=== PATIENT | female | born 1970 | race Caucasian/White ===

== ENCOUNTER 2017-04-26 07:18 | Emergency (ER) | payer OTHER ==
[~2017-04-26] VITALS: Ht 152.4 cm; Wt 120.0 kg
[~2017-04-26 07:18] MED LIST: CLON1TAB PO; VIST50CA PO
[2017-04-26 07:19] VITALS: BP 129/90; PULSE 92; RESP 20; TEMP 97.7; O2SAT 97
[2017-04-26 08:25] LABS: AUTOMATED NEUTROPHIL # 7.2 TH/MM3 (1.8-7.7); BASOPHIL # 0.1 TH/MM3 (0-0.2); BASOPHIL % 0.6 % (0.0-2.0); EOSINOPHIL # 0.2 TH/MM3 (0-0.4); EOSINOPHIL % 1.8 % (0.0-4.0); HEMATOCRIT 36.3 % (35.0-46.0); HEMO FLAGS DIFF FINAL; LYMPHOCYTE # 1.8 TH/MM3 (1.0-4.8); MEAN CELL VOLUME 79.1 FL (80.0-100.0); MEAN CORPUSCULAR HEMOGLOBIN 25.5 PG (27.0-34.0); MEAN CORPUSCULAR HGB CONC 32.2 % (32.0-36.0); MONO % 5.6 % (0.0-8.0); PLATELET COUNT 340 TH/MM3 (150-450); RED BLOOD COUNT 4.59 MIL/MM3 (4.00-5.30); RED CELL DISTRIBUTION WIDTH 15.8 % (11.6-17.2); WHITE BLOOD COUNT 9.8 TH/MM3 (4.0-11.0)
[2017-04-26 08:43] LABS: ANION GAP 6 MEQ/L (5-15); AST (GOT) 10 U/L (15-37); BICARBONATE 25.8 MEQ/L (21.0-32.0); BLOOD UREA NITROGEN 6 MG/DL (7-18); CHLORIDE 102 MEQ/L (98-107); GLOMERULAR FILTRATION RATE 102 ML/MIN (>89); POTASSIUM 3.8 MEQ/L (3.5-5.1); SODIUM (NA) 134 MEQ/L (136-145)
[2017-04-26 08:49] LABS: ALKALINE PHOSPHATASE 82 U/L (45-117); ALT (GPT) 13 U/L (10-53); TOTAL BILIRUBIN ADULT 1.1 MG/DL (0.2-1.0)
--- NOTE | 2017-04-26 09:16 | PD ---
HPI Chief Complaint: Dizziness Time Seen by Provider: 09:13 Travel History International Travel<30 days: No Contact w/Intl Traveler<30days: No Traveled to known affect area: No History of Present Illness HPI c/o onset of room spinning today, 3hrs ago, with left ear fullness/pain, and a buzzing sound as well....denies fever/nelson/photophobia/n/v PFSH Past Medical History Depression: Yes ?: Not : 2 Para: 2 Past Surgical History Section: Yes (X 2) Social History Alcohol Use: No Tobacco Use: No Substance Use: No Allergies-Medications (Allergen,Severity, Reaction): Coded Allergies: penicillin G (Unverified Allergy, Unknown, 04/26/17) Reported Meds & Prescriptions Reported Meds & Active Scripts Active Meclizine (Meclizine HCl) 25 Mg Tab 25 Mg PO TID PRN Ciprofloxacin (Ciprofloxacin HCl) 500 Mg Tab 500 Mg PO BID Reported Vistaril (Hydroxyzine Pamoate) 50 Mg Cap 100 Mg PO QID PRN Review of Systems Except as stated in HPI: all other systems reviewed are Neg HENT: Positive: Vertigo Physical Exam Narrative GENERAL: SKIN: Warm and dry. HEAD: Atraumatic. Normocephalic. EYES: Pupils equal and round. No scleral icterus. No injection or drainage. ENT: No nasal bleeding or discharge. Mucous membranes pink and moist. LEFT TM ERYTHEMATOUS/DULL/BULGING/ WITH FLUID PRESENT C/W EFFUSION NECK: Trachea midline. No JVD. CARDIOVASCULAR: Regular rate and rhythm. RESPIRATORY: No accessory muscle use. Clear to auscultation. Breath sounds equal bilaterally. GASTROINTESTINAL: Abdomen soft, non-tender, nondistended. MUSCULOSKELETAL: Extremities without clubbing, cyanosis, or edema. No obvious deformities. NEUROLOGICAL: Awake and alert. No obvious cranial nerve deficits. Motor grossly within normal limits. Five out of 5 muscle strength in the arms and legs. Normal speech. PSYCHIATRIC: Appropriate mood and affect; insight and judgment normal. Data Data Last Documented VS Vital Signs Date Time Temp Pulse Resp B/P (MAP) Pulse Ox O2 Delivery O2 Flow Rate FiO2 04/26/17 11:47 04/26/17 09:21 82 18 100 Room Air 04/26/17 07:19 97.7 Orders Orders Electrocardiogram (04/26/17 08:05) Complete Blood Count With Diff (04/26/17 08:05) Comprehensive Metabolic Panel (04/26/17 08:05) Iv Access Insert/Monitor (04/26/17 08:05) Ct Brain W/O Iv Contrast(Rout) (04/26/17 ) Labs Laboratory Tests Test 04/26/17 08:05 White Blood Count 9.8 TH/MM3 Red Blood Count 4.59 MIL/MM3 Hemoglobin 11.7 GM/DL Hematocrit 36.3 % Mean Corpuscular Volume 79.1 FL Mean Corpuscular Hemoglobin 25.5 PG Mean Corpuscular Hemoglobin Concent 32.2 % Red Cell Distribution Width 15.8 % Platelet Count 340 TH/MM3 Mean Platelet Volume 8.2 FL Neutrophils (%) (Auto) 74.0 % Lymphocytes (%) (Auto) 18.0 % Monocytes (%) (Auto) 5.6 % Eosinophils (%) (Auto) 1.8 % Basophils (%) (Auto) 0.6 % Neutrophils # (Auto) 7.2 TH/MM3 Lymphocytes # (Auto) 1.8 TH/MM3 Monocytes # (Auto) 0.5 TH/MM3 Eosinophils # (Auto) 0.2 TH/MM3 Basophils # (Auto) 0.1 TH/MM3 CBC Comment DIFF FINAL Differential Comment Blood Urea Nitrogen 6 MG/DL Creatinine 0.63 MG/DL Random Glucose 108 MG/DL Total Protein 8.4 GM/DL Albumin 3.2 GM/DL Calcium Level 8.8 MG/DL Alkaline Phosphatase 82 U/L Aspartate Amino Transf (AST/SGOT) 10 U/L Alanine Aminotransferase (ALT/SGPT) 13 U/L Total Bilirubin 1.1 MG/DL Sodium Level 134 MEQ/L Potassium Level 3.8 MEQ/L Chloride Level 102 MEQ/L Carbon Dioxide Level 25.8 MEQ/L Anion Gap 6 MEQ/L Estimat Glomerular Filtration Rate 102 ML/MIN [facility] Medical Decision Making Medical Screen Exam Complete: Yes Emergency Medical Condition: Yes Medical Record Reviewed: Yes Differential Diagnosis ich v sinusitis v vertigo Narrative Course CT DID NOT SHOW E/O ICH, NOR ANY MAJOR SINUS INFECTION Diagnosis Primary Impression: vertigo Additional Impression: Left otitis media with effusion Scripts Meclizine (Meclizine) 25 Mg Tab 25 MG PO TID Y for VERTIGO, #21 TAB 0 Refills Prov: Willi Rodrigues MD 04/26/17 Ciprofloxacin (Ciprofloxacin) 500 Mg Tab 500 MG PO BID for Infection, #14 TAB 0 Refills Prov: Willi Rodrigues MD 04/26/17 Disposition: 01 DISCHARGE HOME Condition: Stable Willi Rodrigues MD Apr 26, 2017 09:16
[2017-04-26] MEDS ORDERED: VIST50CA PO (09:20)
[2017-04-26 09:21] VITALS: BP 131/87; PULSE 82; RESP 18; O2SAT 100
--- NOTE | 2017-04-26 10:06 | RADRPT ---
EXAM DATE/TIME: 04/26/2017 10:00 [facility] COMPARISON: No previous studies available for comparison. INDICATIONS : Dizziness. RADIATION DOSE: 35.39 CTDIvol (mGy) MEDICAL HISTORY : None SURGICAL HISTORY : section. ENCOUNTER: Initial ACUITY: 1 day PAIN SCALE: 0/10 LOCATION: cranial TECHNIQUE: Multiple contiguous axial images were obtained of the head. Using automated exposure control and adj ustment of the mA and/or kV according to patient size, radiation dose was kept as low as reasonably a chievable to obtain optimal diagnostic quality images. DICOM format image data is available electro nically for review and comparison. FINDINGS: CEREBRUM: The ventricles are normal for age. No evidence of midline shift, mass lesion, hemorrhage or acute in farction. No extra-axial fluid collections are seen. POSTERIOR FOSSA: The cerebellum and brainstem are intact. The 4th ventricle is midline. The cerebellopontine angle i s unremarkable. EXTRACRANIAL: The visualized portion of the orbits is intact. SKULL: The calvaria is intact. No evidence of skull fracture. CONCLUSION: Negative exam Julian Jones MD on April 26, 2017 at 10:03 Board Certified Radiologist. This report was verified electronically.
[2017-04-26] MEDS ORDERED: CIPR500T2 PO (10:13)
[2017-04-26] MEDS ORDERED: MECL-62 PO (10:13)
--- NOTE | 2017-04-26 12:08 | EKG ---
Date Performed: 04/26/2017 Time Performed: 08:26:14 PTAGE: 46 years EKG: Sinus rhythm WITH SHORT CT INTERVAL BORDERLINE ECG PREVIOUS TRACING : 06/20/2016 22.27 No significant change from previous tracing noted. DOCTOR: Brent Ho Interpretating Date/Time 04/26/2017 12:06:27
== END 2017-04-26 11:45 | disposition home or self-care (01) ==
LOC: NEPD 07:18
DX: H65.92 Unspecified nonsuppurative otitis media, left ear (principal)
CPT/HCPCS: 70450; 80053; 85025; 93005; 99285

== ENCOUNTER 2017-08-12 08:36 | Emergency (ER) | payer OTHER ==
[~2017-08-12] VITALS: Ht 152.4 cm; Wt 120.0 kg
[~2017-08-12 08:36] MED LIST changes: +CIPR500T2 PO; -CLON1TAB PO; +MECL-62 PO
[2017-08-12 08:39] VITALS: BP 162/99; PULSE 95; RESP 16; TEMP 98; O2SAT 100
[2017-08-12] MEDS ORDERED: SODIUM CHLOR 0.9% 1000 ML INJ 1,000 ML IV ONE (09:01)
--- NOTE | 2017-08-12 09:05 | PD ---
HPI Chief Complaint: Headache Time Seen by Provider: 09:01 Travel History International Travel<30 days: No Contact w/Intl Traveler<30days: No Traveled to known affect area: No History of Present Illness HPI 47-year-old female patient with history of migraine headaches, anxiety, presents to the ER today for 2 days history of headaches that started from the back of her head, rated at an 8 out of 10 currently, worsening and last few days. She has been nauseous but denies any fevers, vomiting, stiff neck, diarrhea, or other symptoms. She states that she has history of migraine headaches and initially thought that it could be related to her anxiety but took anxiety medications without significant relief. Modifying Factors: None Associated Signs & Symptoms: Headaches Risk Factors: History of migraine headaches PFSH Past Medical History Anxiety: Yes Depression: Yes Diminished Hearing: No Psychiatric: Yes ?: Not Menopausal: Yes : 2 Para: 2 Past Surgical History Section: Yes (X 2) Gynecologic Surgery: Yes (C-SEC X 2) Social History Alcohol Use: No Tobacco Use: No Substance Use: No Allergies-Medications (Allergen,Severity, Reaction): Coded Allergies: penicillin G (Unverified Allergy, Unknown, 08/12/17) Reported Meds & Prescriptions Reported Meds & Active Scripts Active Reported Vistaril (Hydroxyzine Pamoate) 50 Mg Cap 100 Mg PO QID PRN Review of Systems Except as stated in HPI: all other systems reviewed are Neg Physical Exam Narrative GENERAL: Well-developed middle age female patient currently mild distress. Awake and oriented 3. Sitting in a lighted room, no photophobia. SKIN: Focused skin assessment warm/dry. HEAD: Atraumatic. Normocephalic. EYES: Pupils equal and round. No scleral icterus. No injection or drainage. ENT: No nasal bleeding or discharge. Mucous membranes pink and moist. NECK: Trachea midline. No JVD. Neck is supple. CARDIOVASCULAR: Regular rate and rhythm. No murmur appreciated. RESPIRATORY: No accessory muscle use. Clear to auscultation. Breath sounds equal bilaterally. GASTROINTESTINAL: Abdomen soft, non-tender, nondistended. Hepatic and splenic margins not palpable. MUSCULOSKELETAL: No obvious deformities. No clubbing. No cyanosis. No edema. NEUROLOGICAL: Awake and alert. No obvious cranial nerve deficits. Motor grossly within normal limits. Normal speech. PSYCHIATRIC: Appropriate mood and affect; insight and judgment normal. Data Data Last Documented VS Vital Signs Date Time Temp Pulse Resp B/P (MAP) Pulse Ox O2 Delivery O2 Flow Rate FiO2 08/12/17 08:39 98.0 95 16 162/99 (120) 100 Room Air Orders Orders Complete Blood Count With Diff (08/12/17 09:01) Basic Metabolic Panel (Bmp) (08/12/17 09:01) Ct Brain W/O Iv Contrast(Rout) (08/12/17 09:) Ecg Monitoring (08/12/17 09:) Iv Access Insert/Monitor (08/12/17:) Oximetry (08/12/17 09:) Sodium Chloride 0.9% Flush (Ns Flush) (08/12/17:15) Diphenhydramine Inj (Benadryl Inj) (08/12/17:15) Metoclopramide Inj (Reglan Inj) (08/12/17:15) Sodium Chlor 0.9% 1000 Ml Inj (Ns 1000 M (08/12/17 09:01) Urinalysis - C+S If Indicated (08/12/17 09:01) Ed Urine Pregnancytest Poc (08/12/17 09:01) Labs Laboratory Tests Test 08/12/17 09:05 08/12/17 09:15 White Blood Count 7.6 TH/MM3 Red Blood Count 4.48 MIL/MM3 Hemoglobin 11.3 GM/DL Hematocrit 35.2 % Mean Corpuscular Volume 78.6 FL Mean Corpuscular Hemoglobin 25.1 PG Mean Corpuscular Hemoglobin Concent 32.0 % Red Cell Distribution Width 15.0 % Platelet Count 365 TH/MM3 Mean Platelet Volume 8.1 FL Neutrophils (%) (Auto) 67.4 % Lymphocytes (%) (Auto) 25.6 % Monocytes (%) (Auto) 5.1 % Eosinophils (%) (Auto) 1.6 % Basophils (%) (Auto) 0.3 % Neutrophils # (Auto) 5.1 TH/MM3 Lymphocytes # (Auto) 2.0 TH/MM3 Monocytes # (Auto) 0.4 TH/MM3 Eosinophils # (Auto) 0.1 TH/MM3 Basophils # (Auto) 0.0 TH/MM3 CBC Comment DIFF FINAL Differential Comment Blood Urea Nitrogen 8 MG/DL Creatinine 0.60 MG/DL Random Glucose 100 MG/DL Calcium Level 8.4 MG/DL Sodium Level 136 MEQ/L Potassium Level 3.8 MEQ/L Chloride Level 103 MEQ/L Carbon Dioxide Level 24.8 MEQ/L Anion Gap 8 MEQ/L Estimat Glomerular Filtration Rate 108 ML/MIN Urine Color YELLOW Urine Turbidity HAZY Urine pH 5.5 Urine Specific [place] 1.017 Urine Protein NEG mg/dL Urine Glucose (UA) NEG mg/dL Urine Ketones NEG mg/dL Urine Occult Blood SMALL Urine Nitrite NEG Urine Bilirubin NEG Urine Urobilinogen LESS THAN 2.0 MG/DL Urine Leukocyte Esterase NEG Urine RBC 1 /hpf Urine WBC 1 /hpf Urine Squamous Epithelial Cells 15 /hpf Urine Bacteria OCC /hpf Urine Hyaline Casts 1 /lpf Urine Mucus FEW /lpf Microscopic Urinalysis Comment CULT NOT INDICATED MDM Medical Decision Making Medical Screen Exam Complete: Yes Emergency Medical Condition: Yes Medical Record Reviewed: Yes Interpretation(s) Laboratory Tests Test 08/12/17 09:05 08/12/17 09:15 Hemoglobin 11.3 GM/DL (11.6-15.3) Mean Corpuscular Volume 78.6 FL (80.0-100.0) Mean Corpuscular Hemoglobin 25.1 PG (27.0-34.0) Calcium Level 8.4 MG/DL (8.5-10.1) Urine Turbidity HAZY (CLEAR) Urine Occult Blood SMALL (NEG) Urine Bacteria OCC /hpf (NONE) Urine Mucus FEW /lpf (OCC) Last [address] 08/12/17 0901 Signed Impressions: Service Date/Time: August 09:22 - CONCLUSION: 1. No acute intracranial abnormality. Alvin Dave MD Differential Diagnosis Headaches: Migraine headaches versus dehydration versus metabolic issues versus tension headache versus acute intracranial processes Narrative Course CT the brain did not show any signs of acute intracranial processes. Vital signs are stable in the ER. Her repeat blood pressure at 10 AM is 138/80. Patient has history of migraine headaches and at this point, I do not suspect other acute processes. She does not meningeal signs, no fevers, no stiff neck, and on reevaluation after IV fluids and Reglan, she is now having a 6 at 10 headache. She appears to be doing well in the ER, fairly comfortable, no vomiting. My plan would be to release her with symptomatic relief for headaches , return as needed for any worsening in symptoms. The plan was discussed with her and she states understanding. Diagnosis Primary Impression: Headache Med/Other Pt SpecificInfo: Prescription(s) given Scripts Ibuprofen (Ibuprofen) 600 Mg Tab 600 MG PO Q6H Y for Pain/Inflammation, #20 TAB 0 Refills Prov: Li Patterson MD 08/12/17 Promethazine (Phenergan) 25 Mg Tablet 25 MG PO Q6H Y for NAUSEA OR VOMITING, #7 TAB 0 Refills Prov: Li Patterson MD 08/12/17 Disposition: 01 DISCHARGE HOME Condition: Stable Li Patterson MD Aug 12, 2017 09:05
[2017-08-12] MEDS ORDERED: diphenhydrAMINE HCL 50 MG/ML VIAL IVP ONE (09:15)
[2017-08-12] MEDS ORDERED: SODIUM CHLORIDE 0.9% FLUSH 10 ML FLUSH IVF PRN (09:15)
[2017-08-12] MEDS ORDERED: METOCLOPRAMIDE HCL 10 MG/2 ML VIAL IVP ONE (09:15)
[2017-08-12 09:33] LABS: AUTOMATED NEUTROPHIL # 5.1 TH/MM3 (1.8-7.7); BASOPHIL % 0.3 % (0.0-2.0); EOSINOPHIL # 0.1 TH/MM3 (0-0.4); EOSINOPHIL % 1.6 % (0.0-4.0); HEMATOCRIT 35.2 % (35.0-46.0); HEMO FLAGS DIFF FINAL; LYMPH % 25.6 % (9.0-44.0); MEAN CELL VOLUME 78.6 FL (80.0-100.0); MEAN CORPUSCULAR HEMOGLOBIN 25.1 PG (27.0-34.0); MONO % 5.1 % (0.0-8.0); NEUT % 67.4 % (16.0-70.0); PLATELET COUNT 365 TH/MM3 (150-450); RED BLOOD COUNT 4.48 MIL/MM3 (4.00-5.30); WHITE BLOOD COUNT 7.6 TH/MM3 (4.0-11.0)
[2017-08-12 09:51] LABS: BACTERIA, URINE OCC /hpf; BLOOD, URINE SMALL (NEG); COMMENT (UR) CULT NOT INDICATED; CULTURE IF INDICATED CULT NOT INDICATED; GLUCOSE,URINE NEG (NEG); HYALINE CAST, URINE 1 /lpf (RARE); KETONE, URINE NEG (NEG); MUCUS URINE FEW /lpf (OCC); NITRITE,URINE NEG (NEG); PH, URINE 5.5 (5.0-8.5); SQUAMOUS EPITHELIAL CELL URINE 15 /hpf (0-5); URINE COLOR YELLOW (YELLW/STRAW)
[2017-08-12 09:54] LABS: BICARBONATE 24.8 MEQ/L (21.0-32.0); POTASSIUM 3.8 MEQ/L (3.5-5.1)
--- NOTE | 2017-08-12 10:07 | RADRPT ---
EXAM DATE/TIME: 08/12/2017 09:22 [facility] COMPARISON: CT BRAIN W/O CONTRAST, April 26, 2017, 10:00. INDICATIONS : Headache for 2 days RADIATION DOSE: 35.53 CTDIvol (mGy) MEDICAL HISTORY : None SURGICAL HISTORY : None. ENCOUNTER: Initial ACUITY: 2 days PAIN SCALE: 5/10 LOCATION: cranial TECHNIQUE: Multiple contiguous axial images were obtained of the head. Using automated exposure control and adj ustment of the mA and/or kV according to patient size, radiation dose was kept as low as reasonably a chievable to obtain optimal diagnostic quality images. DICOM format image data is available electro nically for review and comparison. FINDINGS: CEREBRUM: The ventricles are normal for age. No evidence of midline shift, mass lesion, hemorrhage or acute in farction. No extra-axial fluid collections are seen. POSTERIOR FOSSA: The cerebellum and brainstem are intact. The 4th ventricle is midline. The cerebellopontine angle i s unremarkable. EXTRACRANIAL: The visualized portion of the orbits is intact. SKULL: The calvaria is intact. No evidence of skull fracture. CONCLUSION: 1. No acute intracranial abnormality. Alvin Dave MD on August 12, 2017 at 10:04 Board Certified Radiologist. This report was verified electronically.
[2017-08-12] MEDS ORDERED: PROM25TA10 PO (10:19)
[2017-08-12] MEDS ORDERED: IBUP-232 PO (10:19)
[2017-08-12 10:27] VITALS: BP 138/81
== END 2017-08-12 10:27 | disposition home or self-care (01) ==
LOC: NEPC 08:36
DX: R51 Headache (principal); F32.9 Major depressive disorder, single episode, unspecified; Z88.0 Allergy status to penicillin; Z79.899 Other long term (current) drug therapy
CPT/HCPCS: 70450; 80048; 81001; 84703; 85025; 96361; 96374; 96375; 99285; J1200; J2765; J7030